=== PATIENT | female | born 2000 | race African-American/Black ===

== ENCOUNTER 2020-12-25 08:44 | Emergency (ER) | payer MEDICAID ==
[~2020-12-25] VITALS: Ht 165.1 cm; Wt 68.0 kg
[2020-12-25 14:07] VITALS: BP 122/74
== END 2020-12-25 14:07 | disposition home or self-care (01) ==
LOC: ER 08:52
DX: M79.602 Pain in left arm (principal); F91.3 Oppositional defiant disorder
CPT/HCPCS: 99283

== ENCOUNTER 2021-04-09 09:49 | Emergency (ER) | payer MEDICAID, OTHER ==
[~2021-04-09] VITALS: Ht 162.6 cm; Wt 91.0 kg
[2021-04-09 09:58] VITALS: BP 131/72
[2021-04-09 13:43] LABS: BASOPHILS % 0.7 % (0.0-2.0); EOSINOPHILS % 0.3 % (0.0-5.0); HEMATOCRIT. 35.7 % (36.0-48.0); LYMPHOCYTES % 32.2 % (20.0-50.0); MEAN CORPUSCULAR HEMOGLOBIN 30.7 pg (28.0-32.0); MEAN CORPUSCULAR VOLUME 91.2 fL (81.0-99.0); MONOCYTES % 6.4 % (2.0-8.0); NEUTROPHILS % 60.4 % (40.0-76.0); PLATELET 392 x1000/uL (130-400); RED BLOOD CELL COUNT 3.92 mill/uL (4.2-5.4); RED CELL DISTRIBUTION WIDTH 12.9 % (11.6-14.6)
[2021-04-09 13:49] LABS: CHLORIDE 109 mEq/L (98-107)
[2021-04-09 13:53] LABS: ETHANOL BLOOD < 10 mg/dL
[2021-04-13] MEDS ORDERED: CEPH500C2 MT (12:39)
== END 2021-04-09 14:26 | disposition left against medical advice (07) ==
LOC: ER 10:05
DX: F20.9 Schizophrenia, unspecified (principal); F43.0 Acute stress reaction
CPT/HCPCS: 36415; 80053; 80307; 80320; 80329; 85025; 99283; G0480

== ENCOUNTER 2021-04-09 14:55 | Emergency (ER) | payer MEDICAID ==
[~2021-04-09] VITALS: Ht 157.5 cm; Wt 73.0 kg
[2021-04-09 15:02] VITALS: BP 137/77
[2021-04-13] MEDS ORDERED: CEPH500C2 MT (12:39)
== END 2021-04-09 15:37 | disposition home or self-care (01) ==
LOC: ER 14:55
DX: R07.89 Other chest pain (principal); F20.9 Schizophrenia, unspecified
CPT/HCPCS: 93005; 99283

== ENCOUNTER 2021-04-11 10:59 | Emergency (ER) | payer MEDICAID ==
[~2021-04-11] VITALS: Ht 170.2 cm; Wt 68.0 kg
[2021-04-11] MEDS ORDERED: ACETAMINOPHEN 325MG TABLET PO ONE (11:30)
[2021-04-11 12:15] LABS: HCG SCREEN NEGATIVE
[2021-04-11 19:14] LABS: CLARITY URINE CLOUDY (CLEAR); COLOR URINE YELLOW (YELLOW); PH URINE 5.5 (4.5-8.0); SPECIFIC GRAVITY URINE 1.025 (1.005-1.030)
[2021-04-11 19:15] LABS: KETONES URINE TRACE (NEGATIVE); NITRITE URINE NEGATIVE (NEGATIVE); OCCULT BLOOD URINE NEGATIVE (NEGATIVE); PROTEIN URINE NEGATIVE (NEGATIVE)
[2021-04-11 19:16] LABS: LEUKOCYTE ESTERASE URINE 2+ (NEGATIVE)
[2021-04-11 20:33] VITALS: BP 155/65
[2021-04-13] MEDS ORDERED: CEPH500C2 MT (12:39)
== END 2021-04-11 20:45 | disposition home or self-care (01) ==
LOC: ER 10:59
DX: N30.90 Cystitis, unspecified without hematuria (principal); Z91.410 Personal history of adult physical and sexual abuse; F20.9 Schizophrenia, unspecified
CPT/HCPCS: 81003; 82962; 84703; 99283

== ENCOUNTER 2022-06-15 22:01 | Emergency (ER) | payer OTHER, MEDICAID ==
[~2022-06-15] VITALS: Ht 167.6 cm; Wt 90.0 kg
[~2022-06-15 22:01] MED LIST: CEPH500C2 MT
[2022-06-15 22:09] VITALS: BP 106/54
[2022-06-16 02:31] LABS: CLARITY URINE CLEAR (CLEAR); COLOR URINE YELLOW (YELLOW); KETONES URINE NEGATIVE (NEGATIVE); LEUKOCYTE ESTERASE URINE TRACE (NEGATIVE); NITRITE URINE NEGATIVE (NEGATIVE); OCCULT BLOOD URINE NEGATIVE (NEGATIVE); PROTEIN URINE NEGATIVE (NEGATIVE); SPECIFIC GRAVITY URINE 1.013 (1.005-1.030); UROBILINOGEN URINE 0.2 E.U./dL (0.2-1.0)
[2022-06-16] MEDS ORDERED: IBUPROFEN 600MG TABLET PO ONE (02:45)
[2022-06-16] MEDS ORDERED: IBUP-2029 MT (02:47)
[2022-06-16] MEDS ORDERED: CEPH500T MT (02:47)
== END 2022-06-16 07:13 | disposition left against medical advice (07) ==
LOC: ER 22:01
DX: N12 Tubulo-interstitial nephritis, not specified as acute or chronic (principal); F41.9 Anxiety disorder, unspecified; F32.9 Major depressive disorder, single episode, unspecified; F20.9 Schizophrenia, unspecified
CPT/HCPCS: 81003; 81025; 99283

== ENCOUNTER 2022-07-03 21:45 | Emergency (ER) | payer OTHER ==
[~2022-07-03] VITALS: Ht 172.7 cm; Wt 100.0 kg
[~2022-07-03 21:45] MED LIST changes: +CEPH500T MT; +IBUP-2029 MT
[2022-07-03] MEDS ORDERED: VISCOUS LIDOCAINE 2% 15 ML UDC PO STA (22:24)
[2022-07-03] MEDS ORDERED: MAGNESIUM/ALUMINUM HYDROXIDE/SIMETHICONE 30ML UDC PO STA (22:24)
[2022-07-03] MEDS ORDERED: DICYCLOMINE 10 MG/5 ML ORAL SYR PO STA (22:24)
[2022-07-03] MEDS ORDERED: FAMOTIDINE 20MG/2ML VIAL IV STA (22:24)
[2022-07-03 23:24] LABS: CLARITY URINE CLEAR (CLEAR); COLOR URINE YELLOW (YELLOW); KETONES URINE NEGATIVE (NEGATIVE); LEUKOCYTE ESTERASE URINE 1+ (NEGATIVE); NITRITE URINE NEGATIVE (NEGATIVE); OCCULT BLOOD URINE 3+ (NEGATIVE); PROTEIN URINE NEGATIVE (NEGATIVE); SPECIFIC GRAVITY URINE 1.005 (1.005-1.030); UROBILINOGEN URINE 0.2 E.U./dL (0.2-1.0)
[2022-07-03 23:27] LABS: BASOPHILS % 0.2 % (0.0-2.0); EOSINOPHILS % 0.8 % (0.0-5.0); HEMATOCRIT. 34.2 % (36.0-48.0); HEMOGLOBIN. 11.2 g/dL (12.0-16.0); LYMPHOCYTES % 32.3 % (20.0-50.0); MEAN CORPUSCULAR HEMOGLOBIN 28.6 pg (28.0-32.0); MEAN CORPUSCULAR VOLUME 87.4 fL (81.0-99.0); MEAN PLATELET VOLUME 6.8 fl (7.4-10.4); MONOCYTES % 5.5 % (2.0-8.0); NEUTROPHILS % 61.2 % (40.0-76.0); PLATELET 468 x1000/uL (130-400); RED BLOOD CELL COUNT 3.91 mill/uL (4.2-5.4); RED CELL DISTRIBUTION WIDTH 14.4 % (11.6-14.6)
[2022-07-03 23:40] LABS: PROTHROMBIN TIME 10.9 sec (9.6-11.0)
[2022-07-03 23:57] LABS: CHLORIDE 105 mEq/L (98-107)
[2022-07-04] MEDS ORDERED: CEPH500C2 MT (01:29)
[2022-07-04] MEDS ORDERED: ACETAMINOPHEN 325MG TABLET PO ONE (01:30)
[2022-07-04] MEDS ORDERED: KETOROLAC 30MG/ML VIAL IV ONE (01:45)
[2022-07-04] MEDS: CEPHALEXIN 250MG CAPSULE PO SCH ×2 (02:44→09:39)
[2022-07-04 03:03] LABS: *AMPHETAMINES SCREEN URINE NEGATIVE (NEGATIVE); *BARBITURATES SCREEN URINE NEGATIVE (NEGATIVE); *BENZODIAZEPINES SCREEN URINE NEGATIVE (NEGATIVE); *COCAINE SCREEN URINE NEGATIVE (NEGATIVE); CANNABINOID URINE SCREEN NEGATIVE (NEGATIVE); METHADONE URINE SCREEN NEGATIVE (NEGATIVE); OPIATES URINE SCREEN NEGATIVE (NEGATIVE); PHENCYCLIDINE URINE SCREEN NEGATIVE (NEGATIVE)
[2022-07-04 13:00] VITALS: BP 114/82
== END 2022-07-04 14:51 | disposition home or self-care (01) ==
LOC: ER 21:45
DX: N39.0 Urinary tract infection, site not specified (principal); Z20.822 Contact with and (suspected) exposure to COVID-19; E11.9 Type 2 diabetes mellitus without complications; Z86.59 Personal history of other mental and behavioral disorders
CPT/HCPCS: 36415; 76705; 80053; 80305; 80307; 80320; 80329; 81003; 83690; 85025; 85610; 87426; 96374; 96375; 99285; C9803; J1885; J3490; Z7610; G0480

== ENCOUNTER 2022-11-24 18:08 | Emergency (ER) | payer MEDICAID, OTHER ==
[~2022-11-24] VITALS: Ht 157.5 cm; Wt 131.0 kg
[2022-11-24 18:15] VITALS: BP 123/78; PULSE 136; RESP 18; TEMP 101; O2SAT 97
[2022-11-24] MEDS ORDERED: NIRM1TAB PO (18:30)
[2022-11-24] MEDS ORDERED: TOPUD MT (18:30)
== END 2022-11-24 18:51 | disposition home or self-care (01) ==
LOC: ER 18:08
DX: U07.1 COVID-19 (principal); D64.9 Anemia, unspecified; F41.9 Anxiety disorder, unspecified; F32.9 Major depressive disorder, single episode, unspecified; E11.9 Type 2 diabetes mellitus without complications; F20.9 Schizophrenia, unspecified; Z79.899 Other long term (current) drug therapy
CPT/HCPCS: 99283

== ENCOUNTER 2022-11-24 19:41 | Emergency (ER) | payer OTHER ==
[~2022-11-24] VITALS: Ht 157.5 cm; Wt 131.0 kg
[~2022-11-24 19:41] MED LIST changes: +NIRM1TAB PO; +TOPUD MT
[2022-11-24 19:59] VITALS: BP 127/80; PULSE 100; RESP 14; TEMP 103.1; O2SAT 100
[2022-11-24 20:53] LABS: BASOPHILS % 0.1 % (0.0-2.0); EOSINOPHILS % 0.2 % (0.0-5.0); HEMATOCRIT. 35.2 % (36.0-48.0); HEMOGLOBIN. 11.7 g/dL (12.0-16.0); LYMPHOCYTES % 15.8 % (20.0-50.0); MEAN CORPUSCULAR HEMOGLOBIN 29.2 pg (28.0-32.0); MEAN CORPUSCULAR HGB CONC 33.1 g/dL (31.0-37.0); MEAN CORPUSCULAR VOLUME 88.2 fL (81.0-99.0); MEAN PLATELET VOLUME 6.3 fl (7.4-10.4); MONOCYTES % 8.9 % (2.0-8.0); PLATELET 418 x1000/uL (130-400); RED CELL DISTRIBUTION WIDTH 14.4 % (11.6-14.6); WHITE BLOOD COUNT 8.9 x1000/uL (4.5-11.0)
[2022-11-24 21:00] LABS: CHLORIDE 104 mEq/L (98-107); INDEX HEMOLYSI 1 (1-3); INDEX ICTERIC 1 (1-4); INDEX LIPEMIC 1 (1-3); POTASSIUM 3.9 mEq/L (3.5-5.1); SODIUM 135 mEq/L (136-145)
[2022-11-24 21:06] LABS: CLARITY URINE CLOUDY (CLEAR); COLOR URINE YELLOW (YELLOW); GLUCOSE URINE NEGATIVE (NEGATIVE); KETONES URINE TRACE (NEGATIVE); LEUKOCYTE ESTERASE URINE 2+ (NEGATIVE); NITRITE URINE NEGATIVE (NEGATIVE); OCCULT BLOOD URINE NEGATIVE (NEGATIVE); PH URINE 5.5 (4.5-8.0); PROTEIN URINE TRACE (NEGATIVE); SPECIFIC GRAVITY URINE 1.028 (1.005-1.030); UROBILINOGEN URINE 0.2 E.U./dL (0.2-1.0)
[2022-11-24 21:07] LABS: ACETAMINOPHEN <2 ug/mL ug/mL (10-30); CARBON DIOXIDE 25 mEq/L (21-32); CREATININE 1.1 mg/dL (0.6-1.3); ETHANOL BLOOD < 10 mg/dL (-10); GLUCOSE 100 mg/dL (70-105); UREA NITROGEN BLOOD 13 mg/dL (7-21)
[2022-11-24 21:24] LABS: *AMPHETAMINES SCREEN URINE NEGATIVE (NEGATIVE); *BARBITURATES SCREEN URINE NEGATIVE (NEGATIVE); *BENZODIAZEPINES SCREEN URINE NEGATIVE (NEGATIVE); *COCAINE SCREEN URINE NEGATIVE (NEGATIVE); CANNABINOID URINE SCREEN NEGATIVE (NEGATIVE); ECSTASY MDMA SCREEN URINE NEGATIVE (NEGATIVE); METHADONE URINE SCREEN NEGATIVE (NEGATIVE); OPIATES URINE SCREEN NEGATIVE (NEGATIVE); PHENCYCLIDINE URINE SCREEN NEGATIVE (NEGATIVE)
[2022-11-24 21:32] LABS: BACTERIA URINE 2+; RBC URINE 0-2 /hpf (0-2); SQUAMOUS EPITHELIAL CELL URINE 2+ /lpf (RARE/1+)
[2022-11-24] MEDS ORDERED: LORAZEPAM 1MG TABLET PO ONE (22:00)
[2022-11-25] MEDS ORDERED: CEFTRIAXONE SODIUM 1 G/VIAL IM NR (01:15)
[2022-11-25] MEDS ORDERED: LIDOCAINE HCL/PF 1% 10 MG/ML 5ML VIAL INFIL NR (01:15)
[2022-11-25] MEDS ORDERED: NITROFURANTOIN 100MG M/M CAPSULE PO SCH (09:00)
== END 2022-11-25 02:20 | disposition left against medical advice (07) ==
LOC: ER 19:41
DX: F29 Unspecified psychosis not due to a substance or known physiological condition (principal); U07.1 COVID-19; N39.0 Urinary tract infection, site not specified; D64.9 Anemia, unspecified; F41.9 Anxiety disorder, unspecified; F32.9 Major depressive disorder, single episode, unspecified; F20.9 Schizophrenia, unspecified
CPT/HCPCS: 36415; 80048; 80305; 80307; 80320; 80329; 81003; 81025; 85025; 99283; G0480

== ENCOUNTER 2023-03-18 09:06 | Emergency (ER) | payer MEDICAID, OTHER ==
[~2023-03-18] VITALS: Ht 157.5 cm; Wt 105.0 kg
[2023-03-18 09:40] VITALS: O2SAT 98
[2023-03-18] MEDS ORDERED: LORAZEPAM 1MG TABLET PO ONE ×2 (11:30→20:45)
[2023-03-18 12:55] LABS: BASOPHILS % 0.4 % (0.0-2.0); EOSINOPHILS % 0.7 % (0.0-5.0); HEMATOCRIT. 36.3 % (36.0-48.0); HEMOGLOBIN. 11.5 g/dL (12.0-16.0); LYMPHOCYTES % 25.2 % (20.0-50.0); MEAN CORPUSCULAR HGB CONC 31.8 g/dL (31.0-37.0); MEAN CORPUSCULAR VOLUME 91.1 fL (81.0-99.0); MEAN PLATELET VOLUME 6.5 fl (7.4-10.4); MONOCYTES % 5.5 % (2.0-8.0); NEUTROPHILS % 68.2 % (40.0-76.0); PLATELET 474 x1000/uL (130-400); RED BLOOD CELL COUNT 3.98 mill/uL (4.2-5.4); RED CELL DISTRIBUTION WIDTH 14.3 % (11.6-14.6); WHITE BLOOD COUNT 8.2 x1000/uL (4.5-11.0)
[2023-03-18 13:15] LABS: CLARITY URINE TURBID (CLEAR); COLOR URINE YELLOW (YELLOW); GLUCOSE URINE NEGATIVE (NEGATIVE); KETONES URINE TRACE (NEGATIVE); LEUKOCYTE ESTERASE URINE 2+ (NEGATIVE); NITRITE URINE NEGATIVE (NEGATIVE); OCCULT BLOOD URINE NEGATIVE (NEGATIVE); PROTEIN URINE TRACE (NEGATIVE); SPECIFIC GRAVITY URINE 1.028 (1.005-1.030)
[2023-03-18 13:17] LABS: ACETAMINOPHEN < 2 ug/mL (10-30); ALANINE AMINOTRANSFERASE 8 IU/L (10-49); ALBUMIN 3.9 g/dL (3.2-4.8); ASPARTATE AMINOTRANSFERASE 14 IU/L (<34); BILIRUBIN TOTAL 0.2 mg/dL (0.1-1.0); CALCIUM 8.8 mg/dL (8.7-10.4); CARBON DIOXIDE 26 mEq/L (21-32); CHLORIDE 106 mEq/L (98-107); GLUCOSE 98 mg/dL (70-105); POTASSIUM 4.3 mEq/L (3.5-5.1); PROTEIN TOTAL 8.2 g/dL (6.0-8.3); SODIUM 138 mEq/L (136-145); UREA NITROGEN BLOOD 16 mg/dL (9-23)
[2023-03-18 13:19] LABS: ETHANOL BLOOD < 10 mg/dL (<10)
[2023-03-18 13:22] LABS: HCG SCREEN NEGATIVE
[2023-03-18 13:37] LABS: SQUAMOUS EPITHELIAL CELL URINE 3+ /lpf (RARE/1+)
[2023-03-18 13:39] LABS: BACTERIA URINE 4+
[2023-03-18 13:41] LABS: RBC URINE NONE SEEN /hpf (0-2); YEAST URINE FEW
[2023-03-18 13:56] LABS: *AMPHETAMINES SCREEN URINE NEGATIVE (NEGATIVE); *BARBITURATES SCREEN URINE NEGATIVE (NEGATIVE); *BENZODIAZEPINES SCREEN URINE NEGATIVE (NEGATIVE); *COCAINE SCREEN URINE NEGATIVE (NEGATIVE); CANNABINOID URINE SCREEN NEGATIVE (NEGATIVE); ECSTASY MDMA SCREEN URINE NEGATIVE (NEGATIVE); METHADONE URINE SCREEN Neg (NEGATIVE); OPIATES URINE SCREEN NEGATIVE (NEGATIVE); PHENCYCLIDINE URINE SCREEN NEGATIVE (NEGATIVE)
[2023-03-19] MEDS: OLANZAPINE 5MG TABLET ODT PO SCH ×2 (10:32→20:15)
[2023-03-19] MEDS: HYDROXYZINE 25MG TABLET PO PRN (10:32)
[2023-03-19] MEDS ORDERED: LORAZEPAM 2MG/ML UD SYRINGE IM NR (10:56)
[2023-03-19] MEDS ORDERED: LORAZEPAM 2MG/ML CPJ IM ONE (11:00)
[2023-03-19] MEDS ORDERED: ACETAMINOPHEN 325MG TABLET PO ONE ×2 (18:30→22:15)
[2023-03-19] MEDS ORDERED: TRAZODONE HCL 50MG TABLET PO SCH (21:30)
[2023-03-20] MEDS: HYDROXYZINE 25MG TABLET PO PRN (08:59)
[2023-03-20] MEDS: OLANZAPINE 5MG TABLET ODT PO SCH (08:59)
[2023-03-20] MEDS ORDERED: HALOPERIDOL LACTATE 5MG/ML VIAL IM ONE (15:30)
[2023-03-20] MEDS ORDERED: LORAZEPAM 2MG/ML CPJ IM ONE (15:30)
[2023-03-20] MEDS ORDERED: DIPHENHYDRAMINE 50MG/ML VIAL IM PRN (15:30)
[2023-03-20] MEDS ORDERED: LORAZEPAM 2MG/ML UD SYRINGE IM NR (15:40)
[2023-03-20] MEDS ORDERED: LORAZEPAM 2MG/ML CPJ IM NR (16:00)
[2023-03-20 21:04] VITALS: BP 97/46; PULSE 73; RESP 14; TEMP 97.9
== END 2023-03-20 21:11 ==
LOC: ER 09:06
DX: F41.9 Anxiety disorder, unspecified (principal); R45.851 Suicidal ideations; F20.9 Schizophrenia, unspecified; D64.9 Anemia, unspecified; F43.10 Post-traumatic stress disorder, unspecified; Z20.822 Contact with and (suspected) exposure to COVID-19
CPT/HCPCS: 80053; 80305; 81003; 80307; 80329; 80320; 84703; 85025; 36415; 96372; 99285; 87426; C9803; Z7610; J2060 ×2; J1630; G0480

== ENCOUNTER 2023-04-28 16:03 | Emergency (ER) | payer OTHER ==
[~2023-04-28] VITALS: Ht 152.4 cm; Wt 80.0 kg
[2023-04-28 16:05] VITALS: O2SAT 98
[2023-04-28] MEDS ORDERED: ACTIVATED CHARCOAL 50 G/240 ML TUBE PO ONE (16:30)
[2023-04-28 16:44] LABS: BASOPHILS % 0.1 % (0.0-2.0); EOSINOPHILS % 1.1 % (0.0-5.0); HEMATOCRIT. 33.6 % (36.0-48.0); HEMOGLOBIN. 10.7 g/dL (12.0-16.0); MEAN CORPUSCULAR HEMOGLOBIN 28.5 pg (28.0-32.0); MEAN CORPUSCULAR HGB CONC 31.9 g/dL (31.0-37.0); MEAN CORPUSCULAR VOLUME 89.4 fL (81.0-99.0); MEAN PLATELET VOLUME 6.3 fl (7.4-10.4); MONOCYTES % 5.9 % (2.0-8.0); NEUTROPHILS % 66.9 % (40.0-76.0); PLATELET 390 x1000/uL (130-400); RED BLOOD CELL COUNT 3.76 mill/uL (4.2-5.4); RED CELL DISTRIBUTION WIDTH 13.6 % (11.6-14.6); WHITE BLOOD COUNT 8.5 x1000/uL (4.5-11.0)
[2023-04-28] MEDS ORDERED: ACTIVATED CHARCOAL 50 G/240 ML TUBE PO NR (16:45)
[2023-04-28 16:56] LABS: ACETAMINOPHEN < 2 ug/mL (10-30); ALANINE AMINOTRANSFERASE 12 IU/L (10-49); ALBUMIN 4.2 g/dL (3.2-4.8); ASPARTATE AMINOTRANSFERASE 20 IU/L (<34); BILIRUBIN TOTAL 0.2 mg/dL (0.1-1.0); CARBON DIOXIDE 24 mEq/L (21-32); CHLORIDE 106 mEq/L (98-107); CREATININE 0.9 mg/dL (0.6-1.0); GLUCOSE 108 mg/dL (70-105); POTASSIUM 3.6 mEq/L (3.5-5.1); PROTEIN TOTAL 8.1 g/dL (6.0-8.3); SODIUM 136 mEq/L (136-145); UREA NITROGEN BLOOD 14 mg/dL (9-23)
[2023-04-28 16:57] LABS: ETHANOL BLOOD < 10 mg/dL (<10)
[2023-04-28] MEDS ORDERED: SODIUM CHLORIDE 0.9% 1,000 ML IV ONE (19:45)
[2023-04-29 01:07] LABS: CLARITY URINE TURBID (CLEAR); COLOR URINE YELLOW (YELLOW); GLUCOSE URINE NEGATIVE (NEGATIVE); KETONES URINE NEGATIVE (NEGATIVE); LEUKOCYTE ESTERASE URINE 1+ (NEGATIVE); NITRITE URINE NEGATIVE (NEGATIVE); OCCULT BLOOD URINE TRACE (NEGATIVE); PROTEIN URINE NEGATIVE (NEGATIVE); SPECIFIC GRAVITY URINE 1.026 (1.005-1.030); UROBILINOGEN URINE 0.2 E.U./dL (0.2-1.0)
[2023-04-29 01:14] LABS: *AMPHETAMINES SCREEN URINE NEGATIVE (NEGATIVE); *BARBITURATES SCREEN URINE NEGATIVE (NEGATIVE); *BENZODIAZEPINES SCREEN URINE NEGATIVE (NEGATIVE); *COCAINE SCREEN URINE NEGATIVE (NEGATIVE); CANNABINOID URINE SCREEN NEGATIVE (NEGATIVE); ECSTASY MDMA SCREEN URINE NEGATIVE (NEGATIVE); METHADONE URINE SCREEN Neg (NEGATIVE); OPIATES URINE SCREEN NEGATIVE (NEGATIVE); PHENCYCLIDINE URINE SCREEN NEGATIVE (NEGATIVE)
[2023-04-29 03:10] LABS: AMORPHOUS SEDIMENT URINE 1+ /lpf; BACTERIA URINE 4+; RBC URINE 0-2 /hpf (0-2); SQUAMOUS EPITHELIAL CELL URINE NONE SEEN /lpf (RARE/1+); WBC URINE 0-2 /hpf (0-2); YEAST URINE 1+
[2023-04-29] MEDS ORDERED: FAMOTIDINE 20MG TABLET PO ONE (21:45)
[2023-04-29] MEDS ORDERED: TRAZODONE HCL 50MG TABLET PO SCH (22:06)
[2023-04-29] MEDS ORDERED: CEFTRIAXONE SODIUM 500MG VIAL IM ONE (22:30)
[2023-04-30] MEDS ORDERED: NITROFURANTOIN 100MG M/M CAPSULE PO SCH (09:00)
[2023-04-30 19:22] VITALS: BP 122/69; PULSE 89; RESP 16; TEMP 98.1
== END 2023-04-30 19:33 ==
LOC: ER 16:03
DX: R45.851 Suicidal ideations (principal); I49.9 Cardiac arrhythmia, unspecified; Z20.822 Contact with and (suspected) exposure to COVID-19; Z86.59 Personal history of other mental and behavioral disorders
CPT/HCPCS: 80053; 80305; 81003; 81025; 80307; 80329; 80320; 85025; 36415; 93005; 96360; 96361; 99291; 87426; J7030; Z7610 ×2; G0480